=== PATIENT | female | born 1945 | race Caucasian/White ===

== ENCOUNTER 2016-12-04 15:25 | Inpatient (IN) | payer OTHER ==
[~2016-12-04] VITALS: Ht 152.4 cm; Wt 98.2 kg
[~2016-12-04 15:25] MED LIST: AMLODIPINE BESY10 M1 PO; CEPACOL SORE THR3 MG MM; CIPRO250 MG PO; CIPRO500 MG PO; CLARITIN10 MG PO; COZAAR50 MG PO; ECOTRIN81 MG PO; FLA250 PO; LAC PO; LOSARTAN POTASS50 M1 PO; METFORMIN ER500 M1 PO; METOPROLOL TART25 M1 PO; OMEPRAZOLE DR20 M1 PO; PRI20 PO; SIMVASTATIN10 M1 PO
[2016-12-04 17:45] LABS: CALCIUM 8.2 mg/dL (8.5-10.1); CARBON DIOXIDE 25.6 mmol/L (21-32); CHLORIDE SERUM 107 mmol/L (98-107); CREATININE SERUM 0.7 mg/dL (0.6-1.0); GLUCOSE SERUM 92 mg/dL (74-106); POTASSIUM SERUM 3.8 mmol/L (3.5-5.1); SODIUM SERUM 144 mmol/L (136-145)
[2016-12-04 17:50] LABS: ALKALINE PHOSPHATASE 58 U/L (46-116); ALT/SGPT 10 U/L (14-59); AST/SGOT 28 U/L (15-37); BILIRUBIN TOTAL 0.43 mg/dL (0.20-1.00); TOTAL PROTEIN, SERUM 6.8 g/dL (6.4-8.2)
[2016-12-04 17:54] LABS: ALBUMIN 3.2 g/dL (3.4-5.0)
[2016-12-04 17:57] LABS: BASOPHIL % 0.3 % (0-2); PLATELET COUNT 217 x10^3mcL (130-400); RED CELL DISTRIBUTION WIDTH 13.9 % (11.5-14.5)
[2016-12-04] MEDS ORDERED: HYDROCHLOROTH12.5 M2 PO (18:57)
[2016-12-04 20:26] LABS: AMYLASE 49 U/L (25-115); CHOLESTEROL 175 mg/dL (<200); CHOLESTEROL/HDL RATIO 4.2; HDL CHOLESTEROL 42 mg/dL (40-60); LIPASE 124 IU/L (73-393); MAGNESIUM 2.2 mg/dL (1.8-2.4); PHOSPHOROUS 2.8 mg/dL (2.5-4.9); TRIGLYCERIDES 153 mg/dL (<150)
[2016-12-04 20:29] LABS: T3 TOTAL 1.09 ng/mL
[2016-12-04 20:31] VITALS: BP 168/76
[2016-12-04 20:33] LABS: FREE T4 1.17 ng/dL (0.76-1.46); FREE THYROXINE INDEX 3.2 ug/dL (1.4-4.5); T4(THYROXINE) 9.2 ug/dL (4.7-13.3)
[2016-12-04 21:25] VITALS: BP 155/66
[2016-12-05 06:35] LABS: BASOPHIL % 0.5 % (0-2); PLATELET COUNT 202 x10^3mcL (130-400); RED CELL DISTRIBUTION WIDTH 13.7 % (11.5-14.5)
[2016-12-05 06:46] LABS: CALCIUM 8.1 mg/dL (8.5-10.1); CARBON DIOXIDE 26.9 mmol/L (21-32); CHLORIDE SERUM 110 mmol/L (98-107); CREATININE SERUM 0.8 mg/dL (0.6-1.0); GLUCOSE SERUM 114 mg/dL (74-106); POTASSIUM SERUM 3.9 mmol/L (3.5-5.1); SODIUM SERUM 145 mmol/L (136-145)
[2016-12-05 06:55] LABS: microscopic required? NO
[2016-12-05 06:57] VITALS: BP 141/63
[2016-12-05 07:32] LABS: urine erythrocyte NEGATIVE (NEGATIVE)
[2016-12-05 07:33] LABS: AMPHETAMINE QUAL UR NONE DETECTED (NEG <=1000)
[2016-12-05 08:16] VITALS: BP 150/60
[2016-12-05 12:44] VITALS: BP 146/63
[2016-12-05 18:12] VITALS: BP 140/67
[2016-12-05 21:02] VITALS: BP 138/56
[2016-12-06 05:32] VITALS: BP 137/77
[2016-12-06 06:38] LABS: BASOPHIL % 0.6 % (0-2); PLATELET COUNT 194 x10^3mcL (130-400); RED CELL DISTRIBUTION WIDTH 13.8 % (11.5-14.5)
[2016-12-06 06:51] LABS: CALCIUM 8.5 mg/dL (8.5-10.1); CARBON DIOXIDE 26.6 mmol/L (21-32); CHLORIDE SERUM 107 mmol/L (98-107); CREATININE SERUM 0.8 mg/dL (0.6-1.0); GLUCOSE SERUM 106 mg/dL (74-106); MAGNESIUM 2.1 mg/dL (1.8-2.4); PHOSPHOROUS 3.1 mg/dL (2.5-4.9); SODIUM SERUM 143 mmol/L (136-145)
[2016-12-06] MEDS ORDERED: ECO81 PO (09:10)
[2016-12-06] MEDS ORDERED: LIPI20 PO ×2 (09:10→13:46)
[2016-12-06 09:24] VITALS: BP 134/74
[2016-12-06 11:09] VITALS: BP 134/74
[2016-12-06] MEDS ORDERED: NOR10 PO (13:31)
[2016-12-06] MEDS ORDERED: OMEPRAZOLE MAGN20 M1 PO (13:32)
[2016-12-06] MEDS ORDERED: TOPCARE ASPIRIN81 MG PO (13:49)
[2016-12-06 13:55] VITALS: BP 123/63
== END 2016-12-06 14:01 | disposition home or self-care (01) | DRG 641 ==
LOC: ED 15:25 → DU 18:43
PROVIDERS: Emergency Medicine; ADMIT Family Medicine
DX: E86.0 Dehydration (principal); Z68.41 Body mass index [BMI] 40.0-44.9, adult; E44.0 Moderate protein-calorie malnutrition; G90.9 Disorder of the autonomic nervous system, unspecified; I16.0 Hypertensive urgency; E11.65 Type 2 diabetes mellitus with hyperglycemia; E11.51 Type 2 diabetes mellitus with diabetic peripheral angiopathy without gangrene; E78.2 Mixed hyperlipidemia; K21.9 Gastro-esophageal reflux disease without esophagitis; M19.90 Unspecified osteoarthritis, unspecified site; M81.0 Age-related osteoporosis without current pathological fracture; E66.01 Morbid (severe) obesity due to excess calories
CPT/HCPCS: 82962; 83880; 84439; G0480; J1885; J2405; J3360; J7030; J7040; J8597; Q0092

== ENCOUNTER 2017-05-11 06:46 | Emergency (ER) | payer OTHER ==
[~2017-05-11] VITALS: Ht 167.6 cm; Wt 92.8 kg
[~2017-05-11 06:46] MED LIST changes: +ECO81 PO; +HYDROCHLOROTH12.5 M2 PO; +LIPI20 PO; +NOR10 PO; +OMEPRAZOLE MAGN20 M1 PO; +TOPCARE ASPIRIN81 MG PO
[2017-05-11 06:59] VITALS: Ht 167.6 cm; Wt 92.8 kg
[2017-05-11 09:04] LABS: BASOPHIL % 0.4 % (0-2); PLATELET COUNT 216 x10^3mcL (130-400); RED CELL DISTRIBUTION WIDTH 13.7 % (11.5-14.5)
[2017-05-11 09:18] LABS: CARBON DIOXIDE 27.3 mmol/L (21-32); CHLORIDE SERUM 103 mmol/L (98-107); CREATININE SERUM 0.8 mg/dL (0.6-1.0); GLUCOSE SERUM 133 mg/dL (74-106); POTASSIUM SERUM 3.6 mmol/L (3.5-5.1); SODIUM SERUM 141 mmol/L (136-145)
[2017-05-11 09:19] LABS: UA SPECIFIC GRAVITY 1.015 (1.005-1.035); microscopic required? YES; urine erythrocyte TRACE (NEGATIVE)
[2017-05-11 09:29] LABS: ALBUMIN 3.5 g/dL (3.4-5.0); ALKALINE PHOSPHATASE 92 U/L (46-116); ALT/SGPT 21 U/L (14-59); AMYLASE 52 U/L (25-115); AST/SGOT 19 U/L (15-37); BILIRUBIN TOTAL 0.43 mg/dL (0.20-1.00); CHOLESTEROL 175 mg/dL (<200); HDL CHOLESTEROL 39 mg/dL (40-60); LIPASE 126 IU/L (73-393); T4(THYROXINE) 9.7 ug/dL (4.7-13.3); TOTAL PROTEIN, SERUM 7.7 g/dL (6.4-8.2)
[2017-05-11 11:04] VITALS: BP 133/58
== END 2017-05-11 11:04 | disposition home or self-care (01) ==
LOC: ED 06:46
PROVIDERS: Emergency Medicine
DX: J98.01 Acute bronchospasm (principal); I10 Essential (primary) hypertension; K21.9 Gastro-esophageal reflux disease without esophagitis
CPT/HCPCS: 36600; 82962; 83880; 87804; 94150; J1956; J2930; J7030; J7613; J7644; Q0092

== ENCOUNTER 2017-05-17 19:41 | Emergency (ER) | payer OTHER ==
[~2017-05-17] VITALS: Ht 165.1 cm; Wt 91.7 kg
[2017-05-17 19:49] VITALS: Ht 165.1 cm; Wt 91.7 kg
[2017-05-17 21:52] LABS: BASOPHIL % 1.1 % (0-2); PLATELET COUNT 253 x10^3mcL (130-400); RED CELL DISTRIBUTION WIDTH 13.6 % (11.5-14.5)
[2017-05-17 22:00] LABS: CALCIUM 8.7 mg/dL (8.5-10.1); CARBON DIOXIDE 26.5 mmol/L (21-32); CHLORIDE SERUM 102 mmol/L (98-107); CREATININE SERUM 0.8 mg/dL (0.6-1.0); GLUCOSE SERUM 122 mg/dL (74-106); POTASSIUM SERUM 3.1 mmol/L (3.5-5.1); SODIUM SERUM 140 mmol/L (136-145)
[2017-05-17 22:03] LABS: ALBUMIN 3.6 g/dL (3.4-5.0); ALKALINE PHOSPHATASE 79 U/L (46-116); ALT/SGPT 32 U/L (14-59); AST/SGOT 18 U/L (15-37); BILIRUBIN TOTAL 0.44 mg/dL (0.20-1.00); TOTAL PROTEIN, SERUM 7.4 g/dL (6.4-8.2)
[2017-05-17 23:25] VITALS: BP 150/87
== END 2017-05-17 23:25 | disposition home or self-care (01) ==
LOC: ED 19:41
PROVIDERS: Emergency Medicine
DX: M25.511 Pain in right shoulder (principal); R07.89 Other chest pain; I10 Essential (primary) hypertension; K21.9 Gastro-esophageal reflux disease without esophagitis
CPT/HCPCS: 36415; J1885; Q0092

== ENCOUNTER 2017-11-27 12:48 | Inpatient (IN) | payer OTHER ==
[~2017-11-27] VITALS: Ht 165.1 cm; Wt 91.7 kg
[2017-11-27 13:06] VITALS: Ht 165.1 cm; Wt 91.7 kg
[2017-11-27 15:48] LABS: BASOPHIL % 0.4 % (0-2); PLATELET COUNT 210 x10^3mcL (130-400); RED CELL DISTRIBUTION WIDTH 14.2 % (11.5-14.5)
[2017-11-27 16:09] LABS: CALCIUM 9.4 mg/dL (8.5-10.1); CARBON DIOXIDE 28.5 mmol/L (21-32); CHLORIDE SERUM 103 mmol/L (98-107); CREATININE SERUM 0.7 mg/dL (0.6-1.0); GLUCOSE SERUM 99 mg/dL (74-106); POTASSIUM SERUM 3.9 mmol/L (3.5-5.1); SODIUM SERUM 140 mmol/L (136-145)
[2017-11-27 16:19] LABS: ALBUMIN 3.6 g/dL (3.4-5.0); ALKALINE PHOSPHATASE 88 U/L (46-116); ALT/SGPT 22 U/L (14-59); AST/SGOT 21 U/L (15-37); BILIRUBIN TOTAL 0.69 mg/dL (0.20-1.00); FREE T4 1.08 ng/dL (0.76-1.46); LIPASE 120 IU/L (73-393); TOTAL PROTEIN, SERUM 7.4 g/dL (6.4-8.2)
[2017-11-27 17:12] LABS: microscopic required? NO
[2017-11-27 17:35] LABS: UA SPECIFIC GRAVITY 1.025 (1.005-1.035); urine erythrocyte NEGATIVE (NEGATIVE)
[2017-11-27 20:12] LABS: MAGNESIUM 1.9 mg/dL (1.8-2.4); PHOSPHOROUS 3.5 mg/dL (2.5-4.9)
[2017-11-27 20:13] VITALS: BP 147/70
[2017-11-27 20:13] LABS: AMPHETAMINE QUAL UR NONE DETECTED (See below)
[2017-11-27 20:16] LABS: T3 TOTAL 1.04 ng/mL
[2017-11-27 20:25] LABS: FREE T4 1.08 ng/dL (0.76-1.46); FREE THYROXINE INDEX 2.5 ug/dL (1.4-4.5)
[2017-11-27 22:16] VITALS: BP 143/64
[2017-11-28 05:31] VITALS: BP 144/62
[2017-11-28 05:57] LABS: BASOPHIL % 0.4 % (0-2); PLATELET COUNT 209 x10^3mcL (130-400); RED CELL DISTRIBUTION WIDTH 14.2 % (11.5-14.5)
[2017-11-28 06:31] LABS: CALCIUM 8.8 mg/dL (8.5-10.1); CARBON DIOXIDE 26.1 mmol/L (21-32); CHLORIDE SERUM 106 mmol/L (98-107); CREATININE SERUM 0.8 mg/dL (0.6-1.0); GLUCOSE SERUM 123 mg/dL (74-106); PHOSPHOROUS 3.5 mg/dL (2.5-4.9); POTASSIUM SERUM 3.7 mmol/L (3.5-5.1); SODIUM SERUM 142 mmol/L (136-145)
[2017-11-28 08:50] VITALS: BP 126/58
[2017-11-28 09:48] VITALS: BP 146/64
[2017-11-28 14:01] VITALS: BP 137/69
[2017-11-28] MEDS ORDERED: MECLIZINE HCL12.5 MG PO (15:31)
[2017-11-28 15:53] VITALS: BP 137/69
== END 2017-11-28 16:38 | disposition home or self-care (01) | DRG 304 ==
LOC: ED 12:48 → DU 18:21
PROVIDERS: Emergency Medicine; Family Medicine
DX: I16.0 Hypertensive urgency (principal); N17.0 Acute kidney failure with tubular necrosis; H81.10 Benign paroxysmal vertigo, unspecified ear; K21.9 Gastro-esophageal reflux disease without esophagitis; E11.65 Type 2 diabetes mellitus with hyperglycemia; M19.90 Unspecified osteoarthritis, unspecified site; M81.0 Age-related osteoporosis without current pathological fracture; E78.5 Hyperlipidemia, unspecified; I25.2 Old myocardial infarction
CPT/HCPCS: 82962; 83880; 84439; 97110-GP; J1580; J2270; J7030; J8597; Q0092; Q0162

== ENCOUNTER 2018-01-10 20:34 | Emergency (ER) | payer OTHER ==
[~2018-01-10] VITALS: Ht 167.6 cm; Wt 93.4 kg
[~2018-01-10 20:34] MED LIST changes: +MECLIZINE HCL12.5 MG PO
[2018-01-10 20:38] VITALS: Ht 167.6 cm; Wt 93.4 kg
[2018-01-10 21:22] LABS: BASOPHIL % 0.4 % (0-2); PLATELET COUNT 233 x10^3mcL (130-400); RED CELL DISTRIBUTION WIDTH 13.9 % (11.5-14.5)
[2018-01-10 21:25] LABS: CALCIUM 9.2 mg/dL (8.5-10.1); CARBON DIOXIDE 26.5 mmol/L (21-32); CHLORIDE SERUM 107 mmol/L (98-107); CREATININE SERUM 0.8 mg/dL (0.6-1.0); GLUCOSE SERUM 130 mg/dL (74-106); POTASSIUM SERUM 3.6 mmol/L (3.5-5.1); SODIUM SERUM 143 mmol/L (136-145)
[2018-01-10 21:30] LABS: ALBUMIN 3.7 g/dL (3.4-5.0); ALKALINE PHOSPHATASE 80 U/L (46-116); ALT/SGPT 8 U/L (14-59); AST/SGOT 15 U/L (15-37); BILIRUBIN TOTAL 0.48 mg/dL (0.20-1.00); CHOLESTEROL 176 mg/dL (<200); HDL CHOLESTEROL 44 mg/dL (40-60); LIPASE 127 IU/L (73-393); TOTAL PROTEIN, SERUM 7.4 g/dL (6.4-8.2); TRIGLYCERIDES 154 mg/dL (<150)
[2018-01-10 21:39] LABS: T3 TOTAL 1.21 ng/mL
[2018-01-10 22:12] LABS: FREE T4 1.08 ng/dL (0.76-1.46); FREE THYROXINE INDEX 3.2 ug/dL (1.4-4.5); T4(THYROXINE) 9.5 ug/dL (4.7-13.3)
[2018-01-10 22:39] LABS: microscopic required? NO
[2018-01-10 22:50] LABS: UA SPECIFIC GRAVITY 1.025 (1.005-1.035); urine erythrocyte NEGATIVE (NEGATIVE)
[2018-01-11 00:09] VITALS: BP 130/62
== END 2018-01-11 00:10 | disposition home or self-care (01) ==
LOC: ED 20:34
PROVIDERS: Specialist
DX: M94.0 Chondrocostal junction syndrome [Tietze] (principal); I10 Essential (primary) hypertension; K21.9 Gastro-esophageal reflux disease without esophagitis
CPT/HCPCS: 83880; 84439; J1885; J2405; J3010; J7030; Q0092